=== PATIENT | male | born 1950 | race Asian ===

== ENCOUNTER 2019-04-21 13:06 | Inpatient (IN) | payer OTHER, MEDICAID ==
--- NOTE | 2019-04-21 13:38 | ED Physician Chart ---
ED Chief Complaint/HPI - Patient Information Date Seen:: 04/21/19 Time Seen:: 13:18 Chief Complaint:: acute tachycardia History of Present Illness:: this is a 68 yo male dialysis patient bib ems from dialysis for treatment and evaluation for an episode of severe tachycardia after dialysis was started just prior to arrival. he is diabetic and a quadraplegic. he is obtunded and unable to think or speak with a functioning trach in place. Allergies:: Allergies Allergy/AdvReac Type Severity Reaction Status Date / Time aspirin Allergy Verified 04/21/19 13:16 promethazine Allergy Verified 04/21/19 13:17 Vitals:: Vital Signs - 8 hr 04/21/19 13:17 Temp 99.5 F HR 122 RR 18 BP 148/74 O2 Sat % 100 Historian:: EMS, Medical Records Review:: Nurse's Note Reviewed ED Past Medical History - Past Medical History Obtainable: Yes Past Medical History: HTN, DM, CVA/TIA, Dyslipidemia, ESRD, Dementia, Other ( blind and quadraplegic) Family History: None Social History: Non Smoker, No Alcohol, No Drug Use, Care Facility Surgical History: PEG/GTube, other (trach) Family Medical History - Family Member Father History Unknown: Yes ED Physical Exam - Physical Examination General/Constitutional: Awake, Well-developed, well-nourished, Alert, No distress, GCS 15, Non-toxic appearing, Ambulatory Other Gen/Cons comments:: the patient is obtunded and not responsive to painful stimulus Head: Atraumatic Eyes: Lids, conjuctiva normal, PERRL, EOMI Skin: Nl inspection, No rash, No skin lesions, No ecchymosis, Well hydrated, No lymphadenopathy ENMT: External ears, nose nl, Nasal exam nl, Lips, teeth, gums nl Neck: Nontender, Full ROM w/o pain, No JVD, No nuchal rigidity, No bruit, No mass, No stridor Other Neck comments:: trach noted in place and functioning Respiratory: Nl effort/Exclusion, Clear to Auscultation, No Wheeze/Rhonchi/Rales Cardio Vascular: RRR, No murmur, gallop, rubs, NL S1 S2 GI: No tenderness/rebounding/guarding, No organomegaly, No hernia, Normal BS's, Nondistended, No mass/bruits, No McBurney tenderness Other GI comments:: functioning g-tube noted in the abdomen : No CVA tenderness Extremities: No tenderness or effusion, Full ROM, normal strength in all extremities, No edema, Normal digits & nails Other Extremities comments:: right thigh access line noted. all four extremities have significant muscle wasting. Neuro/Psych: Alert/oriented, DTR's symmetric, Normal sensory exam, Normal motor strength, Judgement/insight normal (unable to see or speak or think), Mood normal, Normal gait, No focal deficits Other Neuro/Psych comments:: quadraplegic Misc: Normal back, No paraspinal tenderness ED Labs/Radiology/EKG Results - Lab Results Results: Laboratory Results - last 24 hr 04/21/19 04/21/19 04/21/19 13:11 13:50 13:50 WBC 8.3 RBC 3.32 L Hgb 8.6 L Hct 26.8 L MCV 80.7 MCH 25.9 L MCHC Differential 32.1 RDW 17.6 Plt Count 139 L MPV 9.2 Add Manual Diff YES Neutrophils % GOLF COURSE ASSISTANT Band Neutrophils % 28 H Lymphocytes % GOLF COURSE ASSISTANT Monocytes % GOLF COURSE ASSISTANT Eosinophils % GOLF COURSE ASSISTANT Basophils % GOLF COURSE ASSISTANT Neutrophils (Manual) 49 Lymphocytes 11 L Monocytes 9 Eosinophils 1 Basophils 0 Metamyelocytes 2 H Platelet Morphology NORMAL Polychromasia 2+ PT 10.8 INR 1.04 Specimen Source Sample Site pH pCO2 pO2 HCO3 Base Excess O2 Saturation Yaron Test Vent Rate Inspired O2 Tidal Volume PEEP Pressure (ins/psv/peep) Critical Value Sodium Potassium Chloride Carbon Dioxide Anion Gap BUN Creatinine Est GFR ( Amer) Est GFR (Non-Af Amer) BUN/Creatinine Ratio Glucose Calcium Magnesium Total Bilirubin AST ALT Alkaline Phosphatase Troponin I B-Natriuretic Peptide Total Protein Albumin Globulin Albumin/Globulin Ratio TSH 1.03 04/21/19 04/21/19 04/21/19 13:50 13:50 13:50 WBC RBC Hgb Hct MCV MCH MCHC Differential RDW Plt Count MPV Add Manual Diff Neutrophils % Band Neutrophils % Lymphocytes % Monocytes % Eosinophils % Basophils % Neutrophils (Manual) Lymphocytes Monocytes Eosinophils Basophils Metamyelocytes Platelet Morphology Polychromasia PT INR Specimen Source Sample Site pH pCO2 pO2 HCO3 Base Excess O2 Saturation Yaron Test Vent Rate Inspired O2 Tidal Volume PEEP Pressure (ins/psv/peep) Critical Value Sodium 136 Potassium 2.9 L* Chloride 99 Carbon Dioxide 18.9 L Anion Gap 21.0 H BUN 47 H Creatinine 2.7 H Est GFR ( Amer) 30.4 Est GFR (Non-Af Amer) 25.1 BUN/Creatinine Ratio 17.4 Glucose 219 H Calcium 8.4 L Magnesium Total Bilirubin 0.7 AST 36 ALT 14 Alkaline Phosphatase 82 Troponin I 0.11 H* B-Natriuretic Peptide 171.0 H Total Protein 6.9 Albumin 3.3 L Globulin 3.6 Albumin/Globulin Ratio 0.9 L TSH 04/21/19 04/21/19 13:50 14:49 WBC RBC Hgb Hct MCV MCH MCHC Differential RDW Plt Count MPV Add Manual Diff Neutrophils % Band Neutrophils % Lymphocytes % Monocytes % Eosinophils % Basophils % Neutrophils (Manual) Lymphocytes Monocytes Eosinophils Basophils Metamyelocytes Platelet Morphology Polychromasia PT INR Specimen Source Arterial Sample Site Right Radial pH 7.423 pCO2 37.9 pO2 72.5 L HCO3 24.2 Base Excess -0.1 O2 Saturation 95.0 Yaron Test Positive Vent Rate 14 Inspired O2 45 Tidal Volume 450 PEEP 5 Pressure (ins/psv/peep) NA Critical Value JG Sodium Potassium Chloride Carbon Dioxide Anion Gap BUN Creatinine Est GFR ( Amer) Est GFR (Non-Af Amer) BUN/Creatinine Ratio Glucose Calcium Magnesium 1.7 L Total Bilirubin AST ALT Alkaline Phosphatase Troponin I B-Natriuretic Peptide Total Protein Albumin Globulin Albumin/Globulin Ratio TSH - Radiology Results Results: CHEST X-RAY = PATCHY FIBROSIS NOTED CT SCAN OF THE HEAD = NO NEW ACUTE DISEASE FOUND - EKG Interpretations EKG Time:: 14:12 Rate & Rhythm: RATE =115, SINUS Kinsman: RIGHT AXIS ED Assessment - Assessment General Assessment: esrd cva with quadraplegic residual unstable for transfer. Critical Care Time: 75 minutes Excludes all billable procedures: Yes This condition life threatening/high prob of deterioration: Yes ED Septic Shock - . Is Septic Shock (SBP<90, OR Lactate>4 mmol\L) present?: No - <6hrs of presentation: Vital Signs: Vital Signs - 8 hr 04/21/19 13:17 Temp 99.5 F HR 122 RR 18 BP 148/74 O2 Sat % 100 ED Reassessment (Disposition) - Reassessment Reassessment Condition:: Improved - Diagnosis Diagnosis:: hypotension ERSD ELEVATED TROPONIN CVA WITH RESIDUAL QUADRAPLEGIA RESPIRATORY FAILURE BLINDINESS - Aftercare/Follow up Instructions Notes:: Dr Mccarty from [facility] authorized to keep him here auth number is [id number]. - Patient Disposition Admitted to:: ICU Admitting Medical Physician:: Linh Casanova Condition at Disposition:: Critical
[2019-04-21 14:16] LABS: HEMATOCRIT 26.8 % (41.0-60); HEMOGLOBIN 8.6 gm/dL (12-16); MEAN CELL VOLUME 80.7 fl (80-99); MEAN CORPUSCULAR HEMOGLOBIN 25.9 pg (27.0-31.0); MEAN CORPUSCULAR HGB CONC 32.1 pg (28.0-36.0); PLATELET COUNT 139 Th/cmm (150-400); RED BLOOD COUNT 3.32 Mil/cmm (3.80-5.80); RED CELL DISTRIBUTION WIDTH 17.6 % (11.5-20.0); WHITE BLOOD COUNT 8.3 Th/cmm (4.8-10.8)
[2019-04-21 14:29] LABS: ALB/GLOB RATIO 0.9 (1.0-1.8); ALBUMIN 3.3 gm/dL (4.2-5.5); BILIRUBIN,TOTAL 0.7 mg/dL (0.3-1.0); CALCIUM SERUM 8.4 mg/dL (8.6-10.3); CARBON DIOXIDE 18.9 mEq/L (21.0-31.0); CREATININE - SERUM 2.7 mg/dL (0.7-1.3); GFR AFRICAN-AMERICAN 30.4 ml/min (>90); GFR NON AFRICAN-AMERICAN 25.1 ml/min; TOTAL PROTEIN,SERUM 6.9 gm/dL (6.0-8.3)
[2019-04-21 14:38] LABS: INR 1.04 (0.5-1.4)
[2019-04-21 15:05] LABS: PaCO2 37.9 mmHg (35.0-45.0); PaO2 72.5 mmHg (80.0-100.0); pH 7.423 (7.35-7.45)
[2019-04-21 15:06] LABS: ALLEN TEST Positive
[2019-04-21 15:18] LABS: POTASSIUM SERUM 2.9 mEq/L (3.5-5.1)
[2019-04-21 15:36] LABS: BAND NEUTROPHILE 28 % (0-10); BASOPHIL 0 % (0-3); EOSINOPHIL 1 % (0-5); LYMPHOCYTE 11 % (20-50); METAMYELOCYTE 2 % (0-0); MONOCYTE 9 % (2-10); NEUTROPHILS 49 % (40-80)
[2019-04-21 15:41] LABS: PLATELET MORPHOLOGY NORMAL (NORMAL); POLYCHROMASIA 2+
[2019-04-21] MEDS ORDERED: Sodium Chloride 0.45% 500 ML IV ONE (16:39)
[2019-04-21 18:31] LABS: ANION GAP 18.1 (7.0-16.0); BILIRUBIN,TOTAL 0.8 mg/dL (0.3-1.0); CARBON DIOXIDE 24.1 mEq/L (21.0-31.0); GFR AFRICAN-AMERICAN 21.8 ml/min (>90); POTASSIUM SERUM 3.2 mEq/L (3.5-5.1); TOTAL PROTEIN,SERUM 8.2 gm/dL (6.0-8.3)
[2019-04-21 18:51] LABS: CREATININE - SERUM 3.6 mg/dL (0.7-1.3)
[2019-04-21] MEDS ORDERED: Sodium Chloride 0.9% 500 ML IV ONE (20:30)
[2019-04-21] MEDS ORDERED: Non-Formulary Item 1 EA (Acetaminophen [Pain Reliever] 1 TAB) GT PRN (20:34)
[2019-04-21] MEDS ORDERED: GLUCAGON HCl 1 MG KIT IM PRN (20:38)
[2019-04-21] MEDS ORDERED: Dextrose 50% 50 mL Abboject IVP PRN (20:38)
[2019-04-21] MEDS ORDERED: Non-Formulary Item 1 EA (Atorvastatin Calcium [Lipitor] 1 TAB) GT SCH (21:00)
--- NOTE | 2019-04-21 21:16 | History & Physical ---
ADMIT DATE: 04/21/2019 CHIEF COMPLAINT: Hypotension. HISTORY OF PRESENT ILLNESS: The patient is a 68-year-old male with long history of stroke, chronic respiratory failure, diabetes mellitus, end-stage renal failure, on hemodialysis, presented to the Emergency Room with hypotension. The patient was evaluated by the ER physician, admitted to the hospital for more evaluation and treatment. The patient on admission did not have any line put at the Emergency Room, so we called the nurse and put the line for the patient. The patient had a bolus of 500 mL of normal saline and final cleaner consulted on the case and aircraft motor mechanic. The patient will resume his medication and G-tube feeding. The patient is spiking low-grade fever. We started him on Tylenol. Blood culture ordered. PAST MEDICAL HISTORY: Significant for hypertension, diabetes mellitus, stroke, end-stage renal failure and hyperlipidemia. PAST SURGICAL HISTORY: G-tube placement, Keshav catheter. MEDICATIONS: ASPIRIN AND PROMETHAZINE. SOCIAL HISTORY: No smoking, no alcohol, no drug. FAMILY HISTORY: Noncontributory. MEDICATIONS: Follow admission reconciliation. REVIEW OF SYSTEMS: RENAL SYSTEM: No history of chronic renal disorder. CARDIOVASCULAR SYSTEM: No coronary artery disease. ENDOCRINE SYSTEM: History of diabetes mellitus, insulin-dependent. No thyroid problem. GASTROINTESTINAL SYSTEM: No upper or lower gastrointestinal bleed. NEUROLOGICAL SYSTEM: Has history of stroke, encephalopathy. HEMATOLOGIC SYSTEM: He has chronic anemia. GENITOURINARY: He has end-stage renal failure, on hemodialysis. PHYSICAL EXAMINATION: GENERAL: He is not coherent. VITAL SIGNS: Temperature is 99.9, heart rate is 110, blood pressure 88/56. HEENT: Pupils reactive to light and accommodation. Sclerae are clear. NECK: Supple. Negative for lymphadenopathy, JVD or bruit. CHEST: Entry of air bilateral, mild diminished. HEART: S1, S2 normal. ABDOMEN: Soft, bowel sounds positive. EXTREMITIES: 1+ edema. NEUROLOGIC: Not coherent. LABORATORY DATA: White blood cell 8.3, hemoglobin 8.6, hematocrit 26.8, platelet 139. Sodium is 136, potassium 3.2, BUN 58, creatinine 3.6. Troponin is 0.11. ASSESSMENT: 1. Hypotension. 2. Chronic respiratory failure. 3. End-stage renal failure. 4. Diabetes mellitus. 5. Anemia. 6. Chronic encephalopathy. PLAN: The patient admitted to the hospital under Dr. Casanova's service. Resume his medication and diet, bolus of fluids given. Dr. Nascimento and Dr. Govea consulted on the case. Blood culture ordered. The patient is a full code. JOB# [id number]
[2019-04-21 21:30] VITALS: BP 94/55
[2019-04-21] MEDS ORDERED: Norepinephrine 4 mg/4mL Vial IV ONE (21:57)
[2019-04-21] MEDS: Sodium Chloride 0.9% 1,000 ML IV SCH (23:00)
[2019-04-21] MEDS: LEVALBUTEROL 1.25 MG/3 ML HHN SCH (23:21)
[2019-04-22] MEDS: INSULIN LISPRO SLIDING SCALE 100 UNITS/ML UNIT SUBQ SCH ×4 (01:00→18:37)
[2019-04-22 05:14] LABS: MEAN CELL VOLUME 81.6 fl (80-99); MEAN CORPUSCULAR HEMOGLOBIN 25.6 pg (27.0-31.0); MEAN CORPUSCULAR HGB CONC 31.4 pg (28.0-36.0); PLATELET COUNT 115 Th/cmm (150-400); RED BLOOD COUNT 2.92 Mil/cmm (3.80-5.80); RED CELL DISTRIBUTION WIDTH 17.1 % (11.5-20.0); WHITE BLOOD COUNT 6.5 Th/cmm (4.8-10.8)
[2019-04-22 05:32] LABS: ALB/GLOB RATIO 0.9 (1.0-1.8); ALBUMIN 3.6 gm/dL (4.2-5.5); ANION GAP 16.4 (7.0-16.0); BILIRUBIN,TOTAL 0.6 mg/dL (0.3-1.0); CALCIUM SERUM 9.4 mg/dL (8.6-10.3); CARBON DIOXIDE 22.9 mEq/L (21.0-31.0); GFR AFRICAN-AMERICAN 19.3 ml/min (>90); GFR NON AFRICAN-AMERICAN 15.9 ml/min; POTASSIUM SERUM 3.3 mEq/L (3.5-5.1); TOTAL PROTEIN,SERUM 7.7 gm/dL (6.0-8.3)
[2019-04-22 06:34] LABS: HEMATOCRIT 23.8 % (41.0-60); HEMOGLOBIN 7.5 gm/dL (12-16)
[2019-04-22] MEDS: LEVALBUTEROL 1.25 MG/3 ML HHN SCH ×2 (07:33→15:00)
[2019-04-22 07:57] LABS: BAND NEUTROPHILE 0 % (0-10); BASOPHIL 0 % (0-3); EOSINOPHIL 2 % (0-5); LYMPHOCYTE 12 % (20-50); MONOCYTE 6 % (2-10); NEUTROPHILS 80 % (40-80)
[2019-04-22 07:58] LABS: PLATELET ESTIMATE DECREASED PLATELETS (NORMAL)
[2019-04-22 08:05] LABS: A1C 6.3 % (4.8-5.6)
[2019-04-22] MEDS ORDERED: [UNRECOGNIZED DRUG - OTHER] GT SCH (09:00)
[2019-04-22] MEDS ORDERED: ZINC GT SCH (09:00)
[2019-04-22] MEDS ORDERED: ASCORBIC ACID GT SCH (09:00)
[2019-04-22] MEDS ORDERED: Insulin Glargine 100 units/ml 10ml Vial SUBQ SCH (09:00)
[2019-04-22] MEDS ORDERED: WHEY PROTEIN GT SCH (09:00)
[2019-04-22] MEDS ORDERED: ARGININE GT SCH (09:00)
[2019-04-22] MEDS ORDERED: VITAMIN E GT SCH (09:00)
[2019-04-22] MEDS ORDERED: OMEPRAZOLE GT SCH (09:00)
[2019-04-22] MEDS ORDERED: NUT TX IMPAIRED RENAL FXN SOY GT SCH (09:00)
--- NOTE | 2019-04-22 09:34 | Diagnostic Imaging Report ---
Portable chest x-ray HISTORY: Shortness of breath Heart size difficult to assess with portable technique in a poor inspiration, but appears somewhat generous. Question of bilateral hazy lower lobe infiltrates. Clinical correlation and follow-up recommended. Tracheostomy noted. IMPRESSION: 1. Question of hazy bilateral lower lobe pulmonary infiltrates. Follow-up recommended 2. Tracheostomy 3. Somewhat generous overall heart size
[2019-04-22] MEDS: Pantoprazole 40 mg/Packet GT SCH (09:36)
[2019-04-22] MEDS: Vitamin B Complex w/Vitamin C Tab GT SCH (09:36)
--- NOTE | 2019-04-22 09:40 | Diagnostic Imaging Report ---
CT scan of the brain without intravenous contrast HISTORY: Stroke, CVA Total DLP equals 683 CTDI equals 37.5 Axial sections were obtained from the base of the skull to vertex. There is enlargement of the ventricular system along with enlargement of cerebral sulci and subarachnoid cisterns reflecting generalized atrophy. Marked encephalomalacia/atrophy involves the cerebellum. Hypodensity noted in the supratentorial periventricular white matter regions without mass effect. The findings may be associated with chronic small vessel ischemic disease. No acute intracerebral hemorrhage. Again, no mass effect or shift of midline structures. No extra-axial masses or abnormal fluid collections. Severe dense atherosclerotic vascular calcination noted particularly in the region of the vertebral and basilar arteries at the base of the skull. Sclerotic change involves the mastoid air cells bilaterally. IMPRESSION: 1. No acute abnormalities 2. Severe atrophic and chronic changes 3. Supratentorial white matter changes which may be associated with chronic small vessel ischemic disease 4. Severe atherosclerotic vascular changes 5. Sclerotic mastoid air cells consistent with inflammatory sequelae
--- NOTE | 2019-04-22 12:37 | Consultation ---
Consult Note - Consult Note Service Date: 04/22/19 Referring Physician: Linh Casanova Consult Note: PHYSICIAN Consultation Note: Date of Admission: 04/21/19 Purpose of Consultation: Chief Complaint: History of Present Illness: Patient DEMETRI DIAZ was admitted to location Intensive Care Unit with HYPOTENSION. Past Medical History: ESRD2/2 DM, HTN DM HTN BLINDNESS CHRONIC VENT DEPENDENT RESP FAILURE G TUBE STATUS R FEMORAL DIALYSIS CATHETER STATUS Allergies Allergy/AdvReac Type Severity Reaction Status Date / Time aspirin Allergy Verified 04/21/19 14:59 promethazine Allergy Verified 04/21/19 14:59 Vital Signs Temp 99.1 F 04/22/19 08:00 Pulse 95 04/22/19 11:03 Resp 24 04/22/19 10:00 BP 121/54 04/22/19 10:00 Pulse Ox 100 04/22/19 11:03 Intake & Output 04/21/19 04/22/19 04/22/19 18:59 06:59 18:59 Intake Total 500 1220 Balance 500 1220 Weight (lbs) 95.254 kg 75.478 kg Intake: Intake, IV Amount 500 Sodium Chloride 0.9% 500 500 ml @ Wide Open IV .Q0M ONE Rx#:[id number] Tube Feeding 520 Other 500 200 Other: # Voids 0 # Bowel Movements 0 Stool Characteristics Soft Formed Brown Weight Source Estimated Bedscale Laboratory Results - last 24 hr 04/21/19 04/21/19 04/21/19 13:11 13:50 13:50 WBC 8.3 RBC 3.32 L Hgb 8.6 L Hct 26.8 L MCV 80.7 MCH 25.9 L MCHC Differential 32.1 RDW 17.6 Plt Count 139 L MPV 9.2 Add Manual Diff YES Neutrophils % ARABIC TRANSLATOR Band Neutrophils % 28 H Lymphocytes % ARABIC TRANSLATOR Monocytes % ARABIC TRANSLATOR Eosinophils % ARABIC TRANSLATOR Basophils % ARABIC TRANSLATOR Neutrophils (Manual) 49 Lymphocytes 11 L Monocytes 9 Eosinophils 1 Basophils 0 Metamyelocytes 2 H Platelet Estimate Platelet Morphology NORMAL Polychromasia 2+ PT 10.8 INR 1.04 PTT (Actin FS) 42.1 H Specimen Source Sample Site pH pCO2 pO2 HCO3 Base Excess O2 Saturation Yaron Test Vent Rate Inspired O2 Tidal Volume PEEP Pressure (ins/psv/peep) Critical Value Sodium Potassium Chloride Carbon Dioxide Anion Gap BUN Creatinine Est GFR ( Amer) Est GFR (Non-Af Amer) BUN/Creatinine Ratio Glucose POC Glucose Calcium Magnesium Total Bilirubin AST ALT Alkaline Phosphatase Troponin I B-Natriuretic Peptide Total Protein Albumin Globulin Albumin/Globulin Ratio TSH 1.03 04/21/19 04/21/19 04/21/19 13:50 13:50 13:50 WBC RBC Hgb Hct MCV MCH MCHC Differential RDW Plt Count MPV Add Manual Diff Neutrophils % Band Neutrophils % Lymphocytes % Monocytes % Eosinophils % Basophils % Neutrophils (Manual) Lymphocytes Monocytes Eosinophils Basophils Metamyelocytes Platelet Estimate Platelet Morphology Polychromasia PT INR PTT (Actin FS) Specimen Source Sample Site pH pCO2 pO2 HCO3 Base Excess O2 Saturation Yaron Test Vent Rate Inspired O2 Tidal Volume PEEP Pressure (ins/psv/peep) Critical Value Sodium 136 Potassium 2.9 L* Chloride 99 Carbon Dioxide 18.9 L Anion Gap 21.0 H BUN 47 H Creatinine 2.7 H Est GFR ( Amer) 30.4 Est GFR (Non-Af Amer) 25.1 BUN/Creatinine Ratio 17.4 Glucose 219 H POC Glucose Calcium 8.4 L Magnesium Total Bilirubin 0.7 AST 36 ALT 14 Alkaline Phosphatase 82 Troponin I 0.11 H* B-Natriuretic Peptide 171.0 H Total Protein 6.9 Albumin 3.3 L Globulin 3.6 Albumin/Globulin Ratio 0.9 L TSH 04/21/19 04/21/19 04/21/19 13:50 14:49 17:55 WBC RBC Hgb Hct MCV MCH MCHC Differential RDW Plt Count MPV Add Manual Diff Neutrophils % Band Neutrophils % Lymphocytes % Monocytes % Eosinophils % Basophils % Neutrophils (Manual) Lymphocytes Monocytes Eosinophils Basophils Metamyelocytes Platelet Estimate Platelet Morphology Polychromasia PT INR PTT (Actin FS) Specimen Source Arterial Sample Site Right Radial pH 7.423 pCO2 37.9 pO2 72.5 L HCO3 24.2 Base Excess -0.1 O2 Saturation 95.0 Yaron Test Positive Vent Rate 14 Inspired O2 45 Tidal Volume 450 PEEP 5 Pressure (ins/psv/peep) NA Critical Value JG Sodium 133 L Potassium 3.2 L Chloride 94 L Carbon Dioxide 24.1 Anion Gap 18.1 H BUN 58 H Creatinine 3.6 H Est GFR ( Amer) 21.8 Est GFR (Non-Af Amer) 18.0 BUN/Creatinine Ratio 16.1 Glucose 232 H POC Glucose Calcium 10.0 Magnesium 1.7 L Total Bilirubin 0.8 AST 19 ALT 21 Alkaline Phosphatase 100 Troponin I B-Natriuretic Peptide Total Protein 8.2 Albumin 4.0 L Globulin 4.2 Albumin/Globulin Ratio 1.0 [facility] 04/22/19 04/22/19 04/22/19 00:58 05:00 05:00 WBC 6.5 RBC 2.92 L Hgb 7.5 L* Hct 23.8 L MCV 81.6 MCH 25.6 L MCHC Differential 31.4 RDW 17.1 Plt Count 115 L MPV 8.3 Add Manual Diff YES Neutrophils % Band Neutrophils % 0 Lymphocytes % Monocytes % Eosinophils % Basophils % Neutrophils (Manual) 80 Lymphocytes 12 L Monocytes 6 Eosinophils 2 Basophils 0 Metamyelocytes Platelet Estimate DECREASED PLATELETS Platelet Morphology Polychromasia PT INR PTT (Actin FS) Specimen Source Sample Site pH pCO2 pO2 HCO3 Base Excess O2 Saturation Yaron Test Vent Rate Inspired O2 Tidal Volume PEEP Pressure (ins/psv/peep) Critical Value Sodium 133 L Potassium 3.3 L Chloride 97 L Carbon Dioxide 22.9 Anion Gap 16.4 H BUN 63 H Creatinine 4.0 H Est GFR ( Amer) 19.3 Est GFR (Non-Af Amer) 15.9 BUN/Creatinine Ratio 15.8 Glucose 307 H POC Glucose 234 H Calcium 9.4 Magnesium Total Bilirubin 0.6 AST 22 ALT 24 Alkaline Phosphatase 102 Troponin I B-Natriuretic Peptide Total Protein 7.7 Albumin 3.6 L Globulin 4.1 Albumin/Globulin Ratio 0.9 L [facility] 04/22/19 04/22/19 05:57 11:53 WBC RBC Hgb Hct MCV MCH MCHC Differential RDW Plt Count MPV Add Manual Diff Neutrophils % Band Neutrophils % Lymphocytes % Monocytes % Eosinophils % Basophils % Neutrophils (Manual) Lymphocytes Monocytes Eosinophils Basophils Metamyelocytes Platelet Estimate Platelet Morphology Polychromasia PT INR PTT (Actin FS) Specimen Source Sample Site pH pCO2 pO2 HCO3 Base Excess O2 Saturation Yaron Test Vent Rate Inspired O2 Tidal Volume PEEP Pressure (ins/psv/peep) Critical Value Sodium Potassium Chloride Carbon Dioxide Anion Gap BUN Creatinine Est GFR ( Amer) Est GFR (Non-Af Amer) BUN/Creatinine Ratio Glucose POC Glucose 297 H 328 H Calcium Magnesium Total Bilirubin AST ALT Alkaline Phosphatase Troponin I B-Natriuretic Peptide Total Protein Albumin Globulin Albumin/Globulin Ratio TSH Home Medication Medication Instructions Recorded Type Acetaminophen [Pain Reliever] 1 tab GT Q4HR PRN 04/21/19 History Atorvastatin Calcium [Lipitor] 1 tab GT HS 04/21/19 History Docusate Sodium [Colace] 1 cap GT BID 04/21/19 History Fish Oil [Hugoton 3] 1 tab GT DAILY 04/21/19 History Folic Acid [Folate*] 1 mg GT DAILY 04/21/19 History Folic Acid/Vit Bcomp,C 1 tab GT DAILY 04/21/19 History [Nephro-Canelo Tablet] Insulin Glargine [Lantus Insulin] 120 units SQ BID 04/21/19 History Midodrine [Proamatine] 1 tab GT MWF 04/21/19 History Nut.tx.impaired Renal Fxn,Soy 880 ml GT DAILY 04/21/19 History [Novasource Renal 2 Clay] Omeprazole 1 tab GT BID 04/21/19 History Whey Protein/Arginine/C/E/Zinc 17 gm GT BID 04/21/19 History [Arginaid Extra Liquid] Current Medications Generic Name Dose Route Start Last Admin Trade Name Freq PRN Reason Stop Dose Admin Acetaminophen 650 mg 04/21/19 20:40 Tylenol 650mg Supp RC 06/20/19 20:39 Q4H PRN Fever > 101 Acetaminophen 650 mg 04/22/19 07:21 04/22/19 12:18 Tylenol 650mg/20.3ml Suspension GT 06/21/19 07:20 650 mg Q4HR PRN Administration Pain (Mild) Atorvastatin Calcium 40 mg 04/22/19 21:00 Lipitor GT 06/21/19 20:59 HS REY Chlorhexidine Gluconate 15 ml 04/22/19 20:00 Peridex MM 06/21/19 19:59 0800,2000 REY Dextrose 50 ml 04/21/19 20:38 D50w IVP 06/20/19 20:37 PRN PRN Blood Glucose less than 70 Dextrose 18.75 gm 04/21/19 20:38 Glutose 40% PO 06/20/19 20:37 PRN PRN Blood Glucose less than 70 Docusate Sodium 100 mg 04/22/19 09:00 04/22/19 09:36 Colace PO 06/21/19 08:59 100 mg BID REY Administration Folic Acid 1 mg 04/22/19 09:00 04/22/19 09:36 Folate GT 06/21/19 08:59 1 mg DAILY REY Administration Glucagon 1 mg 04/21/19 20:38 Glucagen IM 06/20/19 20:37 PRN PRN Blood Glucose less than 70 Norepinephrine Bitartrate 4 mg 254 mls @ 0 mls/hr 04/21/19 21:48 04/21/19 22: 20 / Dextrose IV 06/20/19 21:47 4 mcg/min TITR PRN 15.24 mls/hr BP MAINTENANCE (PER PROTOCOL) Administration Protocol Titrate Sodium Chloride 1,000 mls @ 50 mls/hr 04/21/19 21:49 04/21/19 23:00 Nacl 0.9% IV 06/20/19 21:48 50 mls/hr .Q20H REY Administration Insulin Glargine 120 units 04/22/19 09:00 Lantus Insulin SUBQ 06/21/19 08:59 BID REY Insulin Human Lispro 0 units 04/22/19 00:00 04/22/19 12:18 Humalog Insulin Sliding Scale SUBQ 06/21/19 00:00 9 units Q6HR REY Administration Protocol Levalbuterol HCl 1.25 mg 04/21/19 23:00 04/22/19 07:33 Xopenex HHN 06/20/19 22:59 Not Given Q8HRT REY Midodrine 10 mg 04/23/19 09:00 Proamatine GT 06/22/19 08:59 MWF REY Pantoprazole Sodium 40 mg 04/22/19 09:00 04/22/19 09:36 Protonix GT 06/21/19 08:59 40 mg DAILY REY Administration Vitamin B Complex/Vit C/Folic Acid 1 tab 04/22/19 09:00 04/22/19 09:36 Vitamin B Complex W/Vitamin C GT 06/21/19 08:59 1 tab DAILY REY Administration Review of Systems: A 12 point ROS was reviewed with the pertinent positive and negatives noted in the HPI. Social History Smoking Status Never smoker Drug Use No Alcohol Use No Family Medical History Family Medical History Start: 04/21/19 18: 21 Freq: ONCE Status: Active Protocol: Document 04/21/19 18:21 [email or web address] (Rec: 04/21/19 23:32 [id number]) Family Medical History Father History Unknown Yes Physical Exam: General: NON-VERBAL, MECHANICALLY VENTILATED VIA TRACH HEENT: +TRACHESTOMY Cardio: S1 S2 Respiratory: COARSE BS Abdominal: + GTUBE Extremities: NO EDEMA, +RT FEMORAL CATHETER Assessment: ESRD 2/2 DM AND HTN HTN DM ANEMIA OF ESRD HYPOTENSIVE SHOCK CHRONIC VENT DEPENDENT RESP FAILURE Plan: DIALYSIS TODAY EPOGEN MIRZA RN THANK YOU, WILL FOLLOW Signed, Blossom Schmid M.D. 229
[2019-04-22] MEDS: Sodium Chloride 0.9% 1,000 ML IV SCH (18:36)
[2019-04-22] MEDS ORDERED: cefTRIAXone 1 GM in Sodium Chloride 0.9% 50 ML IV SCH (18:45)
[2019-04-22] MEDS: Albuterol Nebulizer 2.5mg/3mL HHN SCH (19:11)
--- NOTE | 2019-04-22 21:45 | Internal Medicine Prog Note ---
Internal Medicine Subjective - Subjective Patient seen and examined:: without staff Patient is:: asleep, non-verbal, in bed Per staff patient has:: no adverse event Internal Medicine Objective - Results Result Diagrams: 04/22/19 05:00 04/22/19 05:00 Recent Labs: Laboratory Last Values WBC 6.5 Th/cmm (4.8-10.8) 04/22/19 05:00 RBC 2.92 Mil/cmm (3.80-5.80) L 04/22/19 05:00 Hgb 7.5 gm/dL (12-16) L* 04/22/19 05:00 Hct 23.8 % (41.0-60) L 04/22/19 05:00 MCV 81.6 fl (80-99) 04/22/19 05:00 MCH 25.6 pg (27.0-31.0) L 04/22/19 05:00 MCHC Differential 31.4 pg (28.0-36.0) 04/22/19 05:00 RDW 17.1 % (11.5-20.0) 04/22/19 05:00 Plt Count 115 Th/cmm (150-400) L 04/22/19 05:00 MPV 8.3 fl 04/22/19 05:00 Add Manual Diff YES 04/22/19 05:00 Neutrophils % [employer]AT[employer] TYPE[employer] INSPECTOR 04/21/19 13:50 Band Neutrophils % 0 % (0-10) 04/22/19 05:00 Lymphocytes % [employer] INSPECTOR 04/21/19 13:50 Monocytes % [employer]IC [employer] INSPECTOR 04/21/19 13:50 Eosinophils % [employer]IC [employer]WR[employer] INSPECTOR 04/21/19 13:50 Basophils % [employer]ATIC [employer]WR[employer] INSPECTOR 04/21/19 13:50 Neutrophils (Manual) 80 % (40-80) 04/22/19 05:00 Lymphocytes 12 % (20-50) L 04/22/19 05:00 Monocytes 6 % (2-10) 04/22/19 05:00 Eosinophils 2 % (0-5) 04/22/19 05:00 Basophils 0 % (0-3) 04/22/19 05:00 Metamyelocytes 2 % (0-0) H 04/21/19 13:50 Platelet Estimate DECREASED PLATELETS (NORMAL) 04/22/19 05:00 Platelet Morphology NORMAL (NORMAL) 04/21/19 13:50 Polychromasia 2+ 04/21/19 13:50 PT 10.8 SECONDS (9.5-11.5) 04/21/19 13:11 INR 1.04 (0.5-1.4) 04/21/19 13:11 PTT (Actin FS) 42.1 SECONDS (26.0-38.0) H 04/21/19 13:11 Specimen Source Arterial 04/21/19 14:49 Sample Site Right Radial 04/21/19 14:49 pH 7.423 (7.35-7.45) 04/21/19 14:49 pCO2 37.9 mmHg (35.0-45.0) 04/21/19 14:49 pO2 72.5 mmHg (80.0-100.0) L 04/21/19 14:49 HCO3 24.2 mEq/L (20.0-26.0) 04/21/19 14:49 Base Excess -0.1 mEq/L (-3.0-3.0) 04/21/19 14:49 O2 Saturation 95.0 % (92.0-100.0) 04/21/19 14:49 Yaron Test Positive 04/21/19 14:49 Vent Rate 14 04/21/19 14:49 Inspired O2 45 04/21/19 14:49 Tidal Volume 450 04/21/19 14:49 PEEP 5 04/21/19 14:49 Pressure (ins/psv/peep) NA 04/21/19 14:49 Critical Value JG 04/21/19 14:49 Sodium 133 mEq/L (136-145) L 04/22/19 05:00 Potassium 3.3 mEq/L (3.5-5.1) L 04/22/19 05:00 Chloride 97 mEq/L (98-107) L 04/22/19 05:00 Carbon Dioxide 22.9 mEq/L (21.0-31.0) 04/22/19 05:00 Anion Gap 16.4 (7.0-16.0) H 04/22/19 05:00 BUN 63 mg/dL (7-25) H 04/22/19 05:00 Creatinine 4.0 mg/dL (0.7-1.3) H 04/22/19 05:00 Est GFR ( Amer) 19.3 ml/min (>90) 04/22/19 05:00 Est GFR (Non-Af Amer) 15.9 ml/min 04/22/19 05:00 BUN/Creatinine Ratio 15.8 04/22/19 05:00 Glucose 307 mg/dL (70-105) H 04/22/19 05:00 POC Glucose 270 MG/DL (70 - 105) H 04/22/19 17:51 Calcium 9.4 mg/dL (8.6-10.3) 04/22/19 05:00 Magnesium 1.7 mg/dL (1.9-2.7) L 04/21/19 13:50 Total Bilirubin 0.6 mg/dL (0.3-1.0) 04/22/19 05:00 AST 22 U/L (13-39) 04/22/19 05:00 ALT 24 U/L (7-52) 04/22/19 05:00 Alkaline Phosphatase 102 U/L (34-104) 04/22/19 05:00 Troponin I 0.11 ng/mL (0.01-0.05) H* 04/21/19 13:50 B-Natriuretic Peptide 171.0 pg/mL (5.0-100.0) H 04/21/19 13:50 Total Protein 7.7 gm/dL (6.0-8.3) 04/22/19 05:00 Albumin 3.6 gm/dL (4.2-5.5) L 04/22/19 05:00 Globulin 4.1 gm/dL 04/22/19 05:00 Albumin/Globulin Ratio 0.9 (1.0-1.8) L 04/22/19 05:00 TSH 1.03 uIU/ml (0.34-5.60) 04/21/19 13:50 - Physical Exam Vitals and I&O: Vital Signs Temp 98.6 F 04/22/19 17:00 Pulse 98 04/22/19 19:20 Resp 18 04/22/19 18:00 BP 112/61 04/22/19 18:00 Pulse Ox 100 04/22/19 20:00 Intake & Output 04/22/19 04/22/19 04/23/19 06:59 18:59 06:59 Intake Total 1220 2254.000 Output Total 2 Balance 1220 2252.000 Weight (lbs) 75.478 kg 75.387 kg Intake: Intake, IV Amount 500 1234.000 Norepinephrine 4 mg In 254 Dextrose 5% 250 ml @ Titrate IV TITR PRN Rx#: [id number] Sodium Chloride 0.9% 1, 980.000 000 ml @ 50 mls/hr IV . Q20H [facility] Rx#:[id number] Sodium Chloride 0.9% 500 500 ml @ Wide Open IV .Q0M [facility] Rx#:[id number] Oral 0 Tube Feeding 520 600 Other 200 420 Output: Other 2 Other: # Voids 0 0 # Bowel Movements 0 2 Stool Characteristics Soft Formed Brown Weight Source Bedscale Bedscale Active Medications: Current Medications Acetaminophen (Tylenol 650mg Supp) 650 mg RC Q4H PRN PRN Reason: Fever > 101 Stop: 06/20/19 20:39 Acetaminophen (Tylenol 650mg/20.3ml Suspension) 650 mg GT Q4HR PRN PRN Reason: Pain (Mild) Stop: 06/21/19 07:20 Last Admin: 04/22/19 12:18 Dose: 650 mg Albuterol Sulfate (Albuterol 2.5mg/3ml Neb Ud) 2.5 mg HHN Q8H [facility] Stop: 06/21/19 18:59 Last Admin: 04/22/19 19:11 Dose: 2.5 mg Atorvastatin Calcium (Lipitor) 40 mg GT HS [facility] Stop: 06/21/19 20:59 Chlorhexidine Gluconate (Peridex) 15 ml MM 0800,2000 [facility] Stop: 06/21/19 19:59 Dextrose (D50w) 50 ml IVP PRN PRN PRN Reason: Blood Glucose less than 70 Stop: 06/20/19 20:37 Dextrose (Glutose 40%) 18.75 gm PO PRN PRN PRN Reason: Blood Glucose less than 70 Stop: 06/20/19 20:37 Docusate Sodium (Colace) 100 mg PO BID [facility] Stop: 06/21/19 08:59 Last Admin: 04/22/19 17:03 Dose: 100 mg Epoetin Bj (Epogen) 10,000 units SUBQ MoWeFr [facility] Stop: 06/22/19 12:38 Folic Acid (Folate) 1 mg GT DAILY [facility] Stop: 06/21/19 08:59 Last Admin: 04/22/19 09:36 Dose: 1 mg Glucagon (Glucagen) 1 mg IM PRN PRN PRN Reason: Blood Glucose less than 70 Stop: 06/20/19 20:37 Heparin Sodium (Porcine) (Heparin) 5,000 units HD UD [facility] Stop: 04/24/19 00:00 Norepinephrine Bitartrate 4 mg (/ Dextrose) 254 mls @ 0 mls/hr IV TITR PRN; Protocol PRN Reason: BP MAINTENANCE (PER PROTOCOL) Stop: 06/20/19 21:47 Last Admin: 04/22/19 18:36 Dose: 2 mcg/min, 7.62 mls/hr Sodium Chloride (Nacl 0.9%) 1,000 mls @ 50 mls/hr IV .Q20H [facility] Stop: 06/20/19 21:48 Last Admin: 04/22/19 18:36 Dose: 50 mls/hr Albumin Human (Albuminar 25%) 25 gm in 100 mls @ 50 mls/hr IV PRN PRN PRN Reason: BP Support During HD Stop: 04/23/19 23:59 Ceftriaxone Sodium 1 gm/ (Sodium Chloride) 50 mls @ 100 mls/hr IV Q24HR [facility] Stop: 06/21/19 20:59 Insulin Glargine (Lantus Insulin) 120 units SUBQ BID [facility] Stop: 06/21/19 08:59 Insulin Human Lispro (Humalog Insulin Sliding Scale) 0 units SUBQ Q6HR [facility]; Protocol Stop: 06/21/19 00:00 Last Admin: 04/22/19 18:37 Dose: 7 units Midodrine (Proamatine) 10 mg GT MWF [facility] Stop: 06/22/19 08:59 Pantoprazole Sodium (Protonix) 40 mg GT DAILY [facility] Stop: 06/21/19 08:59 Last Admin: 04/22/19 09:36 Dose: 40 mg Vitamin B Complex/Vit C/Folic Acid (Vitamin B Complex W/Vitamin C) 1 tab GT DAILY [facility] Stop: 06/21/19 08:59 Last Admin: 04/22/19 09:36 Dose: 1 tab General: demented HEENT: NC/AT, PERRLA, EOMI, anicteric sclerae, throat clear Neck: Supple, No JVD, No thyromegaly, +2 carotid pulse wo bruit, No LAD Lungs: CTAB Cardiovascular: RRR, Normal S1, Normal S2, without murmur Abdomen: soft, non-tender, non-distended Extremities: clear Neurological: no change Internal Medicine Assmt/Plan - Assessment Assessment: 1.HYPOTENSION. 2.RESPIRATORY FAILURE. 3.ESRF. 4.ANEMIA. - Plan Plan: CONTINUE ON CURRENT MEDICATION AND DIET.
[2019-04-22] MEDS: Chlorhexidine Gluconate 0.12% 15mL Mouthwash MM SCH (21:52)
[2019-04-22] MEDS: cefTRIAXone 1 GM in Sodium Chloride 0.9% 50 ML IV SCH (21:52)
[2019-04-23] MEDS ORDERED: Albumin 25% 25gm/100mL 25 GM/100 ML BTL IV PRN
[2019-04-23] MEDS: INSULIN LISPRO SLIDING SCALE 100 UNITS/ML UNIT SUBQ SCH ×4 (00:19→17:52)
[2019-04-23] MEDS: Heparin Sod 5,000Units/ML 5,000 UNITS/ML VIAL HD SCH ×2 (00:37→09:15)
[2019-04-23] MEDS: Albuterol Nebulizer 2.5mg/3mL HHN SCH ×3 (03:06→18:43)
--- NOTE | 2019-04-23 08:06 | Diagnostic Imaging Report ---
Exam: Portable chest x-ray HISTORY: Shortness of breath COMPARISON: 04/21/2019 Findings: Portable exam of chest reviewed at 7:22. The study demonstrates increase in right basal infiltrate and effusion compared to prior study 04/21/2019. Mediastinal structures midline bony thorax intact. Tracheostomy tube midline. Right-sided PICC line terminates in right axillary vein. IMPRESSION: Increase in right basilar infiltrate. Follow-up exam is recommended.
[2019-04-23 08:15] LABS: EOSINOPHILE ABSOLUTE 0.1 Th/cmm (0.1-0.4); LYMPHOCYTE ABSOLUTE 0.6 Th/cmm (1.5-3.0); MONOCYTE ABSOLUTE 0.4 Th/cmm (0.3-1.0)
[2019-04-23 08:19] LABS: % BASOPHILS 0.3 % (0.0-2.0); % EOSINOPHILS 3.1 % (0.0-5.0); % LYMPHOCYTES 13.5 % (20.0-50.0); % MONOCYTES 9.5 % (2.0-10.0); % NEUTROPHILS 73.6 % (40.0-80.0); MEAN CELL VOLUME 80.7 fl (80-99); MEAN CORPUSCULAR HEMOGLOBIN 25.4 pg (27.0-31.0); MEAN CORPUSCULAR HGB CONC 31.5 pg (28.0-36.0); NEUTROPHILE ABSOLUTE 3.2 Th/cmm (1.8-8.0); PLATELET COUNT 111 Th/cmm (150-400); RED BLOOD COUNT 2.61 Mil/cmm (3.80-5.80); RED CELL DISTRIBUTION WIDTH 16.9 % (11.5-20.0); WHITE BLOOD COUNT 4.3 Th/cmm (4.8-10.8)
[2019-04-23 08:25] LABS: ALB/GLOB RATIO 0.8 (1.0-1.8); ALBUMIN 3.5 gm/dL (4.2-5.5); BILIRUBIN,TOTAL 0.5 mg/dL (0.3-1.0); CALCIUM SERUM 9.5 mg/dL (8.6-10.3); CARBON DIOXIDE 24.2 mEq/L (21.0-31.0); CREATININE - SERUM 3.2 mg/dL (0.7-1.3); GFR NON AFRICAN-AMERICAN 20.6 ml/min; POTASSIUM SERUM 3.2 mEq/L (3.5-5.1); TOTAL PROTEIN,SERUM 7.7 gm/dL (6.0-8.3)
[2019-04-23 08:33] LABS: HEMOGLOBIN 6.6 gm/dL (12-16)
[2019-04-23] MEDS ORDERED: Potassium Chloride Elixir 20 mEq /15 mL UDC GT ONE (08:39)
--- NOTE | 2019-04-23 09:06 | General Progress Note ---
Subjective - Review of Systems Service Date: 04/23/19 Subjective: For PRBC transfusion today, next HD tomorrow Objective - Results Result Diagrams: 04/23/19 07:45 04/23/19 07:45 Recent Labs: Laboratory Last Values WBC 4.3 Th/cmm (4.8-10.8) L 04/23/19 07:45 RBC 2.61 Mil/cmm (3.80-5.80) L 04/23/19 07:45 Hgb 6.6 gm/dL (12-16) L* 04/23/19 07:45 Hct 21.0 % (41.0-60) L 04/23/19 07:45 MCV 80.7 fl (80-99) 04/23/19 07:45 MCH 25.4 pg (27.0-31.0) L 04/23/19 07:45 MCHC Differential 31.5 pg (28.0-36.0) 04/23/19 07:45 RDW 16.9 % (11.5-20.0) 04/23/19 07:45 Plt Count 111 Th/cmm (150-400) L 04/23/19 07:45 MPV 8.6 fl 04/23/19 07:45 Add Manual Diff YES 04/22/19 05:00 Neutrophils % 73.6 % (40.0-80.0) 04/23/19 07:45 Band Neutrophils % 0 % (0-10) 04/22/19 05:00 Lymphocytes % 13.5 % (20.0-50.0) L 04/23/19 07:45 Monocytes % 9.5 % (2.0-10.0) 04/23/19 07:45 Eosinophils % 3.1 % (0.0-5.0) 04/23/19 07:45 Basophils % 0.3 % (0.0-2.0) 04/23/19 07:45 Neutrophils (Manual) 80 % (40-80) 04/22/19 05:00 Lymphocytes 12 % (20-50) L 04/22/19 05:00 Monocytes 6 % (2-10) 04/22/19 05:00 Eosinophils 2 % (0-5) 04/22/19 05:00 Basophils 0 % (0-3) 04/22/19 05:00 Metamyelocytes 2 % (0-0) H 04/21/19 13:50 Platelet Estimate DECREASED PLATELETS (NORMAL) 04/22/19 05:00 Platelet Morphology NORMAL (NORMAL) 04/21/19 13:50 Polychromasia 2+ 04/21/19 13:50 PT 10.8 SECONDS (9.5-11.5) 04/21/19 13:11 INR 1.04 (0.5-1.4) 04/21/19 13:11 PTT (Actin FS) 42.1 SECONDS (26.0-38.0) H 04/21/19 13:11 Specimen Source Arterial 04/21/19 14:49 Sample Site Right Radial 04/21/19 14:49 pH 7.423 (7.35-7.45) 04/21/19 14:49 pCO2 37.9 mmHg (35.0-45.0) 04/21/19 14:49 pO2 72.5 mmHg (80.0-100.0) L 04/21/19 14:49 HCO3 24.2 mEq/L (20.0-26.0) 04/21/19 14:49 Base Excess -0.1 mEq/L (-3.0-3.0) 04/21/19 14:49 O2 Saturation 95.0 % (92.0-100.0) 04/21/19 14:49 Yaron Test Positive 04/21/19 14:49 Vent Rate 14 04/21/19 14:49 Inspired O2 45 04/21/19 14:49 Tidal Volume 450 04/21/19 14:49 PEEP 5 04/21/19 14:49 Pressure (ins/psv/peep) NA 04/21/19 14:49 Critical Value JG 04/21/19 14:49 Sodium 132 mEq/L (136-145) L 04/23/19 07:45 Potassium 3.2 mEq/L (3.5-5.1) L 04/23/19 07:45 Chloride 93 mEq/L (98-107) L 04/23/19 07:45 Carbon Dioxide 24.2 mEq/L (21.0-31.0) 04/23/19 07:45 Anion Gap 18.0 (7.0-16.0) H 04/23/19 07:45 BUN 44 mg/dL (7-25) H 04/23/19 07:45 Creatinine 3.2 mg/dL (0.7-1.3) H 04/23/19 07:45 Est GFR ( Amer) 25.0 ml/min (>90) 04/23/19 07:45 Est GFR (Non-Af Amer) 20.6 ml/min 04/23/19 07:45 BUN/Creatinine Ratio 13.8 04/23/19 07:45 Glucose 335 mg/dL (70-105) H 04/23/19 07:45 POC Glucose 339 MG/DL (70 - 105) H 04/23/19 05:09 Calcium 9.5 mg/dL (8.6-10.3) 04/23/19 07:45 Magnesium 1.7 mg/dL (1.9-2.7) L 04/21/19 13:50 Total Bilirubin 0.5 mg/dL (0.3-1.0) 04/23/19 07:45 AST 23 U/L (13-39) 04/23/19 07:45 ALT 29 U/L (7-52) 04/23/19 07:45 Alkaline Phosphatase 112 U/L (34-104) H 04/23/19 07:45 Troponin I 0.11 ng/mL (0.01-0.05) H* 04/21/19 13:50 B-Natriuretic Peptide 171.0 pg/mL (5.0-100.0) H 04/21/19 13:50 Total Protein 7.7 gm/dL (6.0-8.3) 04/23/19 07:45 Albumin 3.5 gm/dL (4.2-5.5) L 04/23/19 07:45 Globulin 4.2 gm/dL 04/23/19 07:45 Albumin/Globulin Ratio 0.8 (1.0-1.8) L 04/23/19 07:45 TSH 1.03 uIU/ml (0.34-5.60) 04/21/19 13:50 - Physical Exam Vitals and I&O: Vital Signs Temp 98.7 F 04/23/19 05:00 Pulse 96 04/23/19 08:55 Resp 17 04/23/19 06:00 BP 127/68 04/23/19 06:00 Pulse Ox 98 04/23/19 08:55 Intake & Output 04/22/19 04/23/19 04/23/19 18:59 06:59 18:59 Intake Total 2254.000 32.131 880 Output Total 2 Balance 2252.000 32.131 880 Weight (lbs) 75.387 kg 72.802 kg Intake: Intake, IV Amount 1234.000 32.131 Norepinephrine 4 mg In 254 32.131 Dextrose 5% 250 ml @ Titrate IV TITR PRN Rx#: [id number] Sodium Chloride 0.9% 1, 980.000 000 ml @ 50 mls/hr IV . Q20H [facility] Rx#:[id number] Oral 0 0 Tube Feeding 600 580 Other 420 300 Output: Other 2 Other: # Voids 0 0 # Bowel Movements 2 1 Stool Characteristics Soft Formed Brown Weight Source Bedscale Estimated Active Medications: Current Medications Acetaminophen (Tylenol 650mg Supp) 650 mg RC Q4H PRN PRN Reason: Fever > 101 Stop: 06/20/19 20:39 Acetaminophen (Tylenol 650mg/20.3ml Suspension) 650 mg GT Q4HR PRN PRN Reason: Pain (Mild) Stop: 06/21/19 07:20 Last Admin: 04/22/19 12:18 Dose: 650 mg Albuterol Sulfate (Albuterol 2.5mg/3ml Neb Ud) 2.5 mg HHN Q8H [facility] Stop: 06/21/19 18:59 Last Admin: 04/23/19 03:06 Dose: 2.5 mg Atorvastatin Calcium (Lipitor) 40 mg GT HS [facility] Stop: 06/21/19 20:59 Last Admin: 04/22/19 21:52 Dose: 40 mg Chlorhexidine Gluconate (Peridex) 15 ml MM 0800,1999 [facility] Stop: 06/21/19 19:59 Last Admin: 04/22/19 21:52 Dose: 15 ml Dextrose (D50w) 50 ml IVP PRN PRN PRN Reason: Blood Glucose less than 70 Stop: 06/20/19 20:37 Dextrose (Glutose 40%) 18.75 gm PO PRN PRN PRN Reason: Blood Glucose less than 70 Stop: 06/20/19 20:37 Docusate Sodium (Colace) 100 mg PO BID [facility] Stop: 06/21/19 08:59 Last Admin: 04/22/19 17:03 Dose: 100 mg Epoetin Bj (Epogen) 10,000 units SUBQ MoWeFr [facility] Stop: 06/22/19 12:38 Folic Acid (Folate) 1 mg GT DAILY [facility] Stop: 06/21/19 08:59 Last Admin: 04/22/19 09:36 Dose: 1 mg Glucagon (Glucagen) 1 mg IM PRN PRN PRN Reason: Blood Glucose less than 70 Stop: 06/20/19 20:37 Heparin Sodium (Porcine) (Heparin) 5,000 units HD UD [facility] Stop: 04/24/19 00:00 Last Admin: 04/23/19 00:37 Dose: Not Given Norepinephrine Bitartrate 4 mg (/ Dextrose) 254 mls @ 0 mls/hr IV TITR PRN; Protocol PRN Reason: BP MAINTENANCE (PER PROTOCOL) Stop: 06/20/19 21:47 Last Titration: 04/22/19 22:49 Dose: 0 mcg/min, 0 mls/hr Sodium Chloride (Nacl 0.9%) 1,000 mls @ 50 mls/hr IV .Q20H [facility] Stop: 06/20/19 21:48 Last Admin: 04/22/19 18:36 Dose: 50 mls/hr Albumin Human (Albuminar 25%) 25 gm in 100 mls @ 50 mls/hr IV PRN PRN PRN Reason: BP Support During HD Stop: 04/23/19 23:59 Ceftriaxone Sodium 1 gm/ (Sodium Chloride) 50 mls @ 100 mls/hr IV Q24HR [facility] Stop: 06/21/19 20:59 Last Admin: 04/22/19 21:52 Dose: 100 mls/hr Insulin Glargine (Lantus Insulin) 120 units SUBQ BID [facility] Stop: 06/21/19 08:59 Insulin Human Lispro (Humalog Insulin Sliding Scale) 0 units SUBQ Q6HR [facility]; Protocol Stop: 06/21/19 00:00 Last Admin: 04/23/19 06:44 Dose: 9 units Midodrine (Proamatine) 10 mg GT MWF [facility] Stop: 06/22/19 08:59 Pantoprazole Sodium (Protonix) 40 mg GT DAILY [facility] Stop: 06/21/19 08:59 Last Admin: 04/22/19 09:36 Dose: 40 mg Vitamin B Complex/Vit C/Folic Acid (Vitamin B Complex W/Vitamin C) 1 tab GT DAILY [facility] Stop: 06/21/19 08:59 Last Admin: 04/22/19 09:36 Dose: 1 tab General: Alert HEENT: Atraumatic Neck: Supple Lungs: Other (coarse bilaterally) Assessment/Plan - Assessment Assessment: ESRD Chronic VDRF s/p tracheostomy HTN Anemia 2 ESRD Hypotension DM2 - Plan Plan: HD tomorrow w/ PRBC transfusion BP controlled H&H below range, see above chronic vent status stable
[2019-04-23] MEDS: Pantoprazole 40 mg/Packet GT SCH (09:14)
[2019-04-23] MEDS: Vitamin B Complex w/Vitamin C Tab GT SCH (09:14)
[2019-04-23] MEDS: Chlorhexidine Gluconate 0.12% 15mL Mouthwash MM SCH ×2 (09:15→20:47)
[2019-04-23] MEDS ORDERED: Epoetin Alfa 20000 Units/mL Vial SUBQ SCH (12:39)
--- NOTE | 2019-04-23 16:02 | Consultation ---
DATE OF CONSULTATION: 04/22/2019 REFERRING PHYSICIAN: Dr. Casanova. Thank you very much for this consultation. HISTORY OF PRESENT ILLNESS: This is a 68-year-old male who has history of chronic respiratory failure, ventilator dependent; end-stage renal disease, on dialysis, who was admitted here yesterday because of hypotension during dialysis. The patient was started on Levophed, has improved and on 2 mcg of Levophed now. Had low-grade fever earlier today. No other history is available at this time. PAST MEDICAL HISTORY: The patient has history of hypertension and CVA. REVIEW OF SYSTEMS: Unable to obtain because of the patient's condition. PHYSICAL EXAMINATION: GENERAL: The patient is arousable, weak, not in acute distress. VITAL SIGNS: T-max 100, temperature 98.6, pulse 92, respirations 18, blood pressure 112/61, saturation 98%. HEENT: Atraumatic, normocephalic. Pupils equal and reactive to light and accommodation. Ears, nose, and throat normal. CHEST: There are good breath sounds. No wheezing or crackles. HEART: Regular rate and rhythm. ABDOMEN: Soft. EXTREMITIES: No edema. DIAGNOSTIC DATA: Chest x-ray showed early infiltrates in bases. LABORATORY DATA: WBC 6.5, hemoglobin 7.5, hematocrit 23.8, platelets 115. Sodium is 133, potassium 3.3, BUN is 63, creatinine 4.0. IMPRESSION: 1. Respiratory failure. 2. Possible pneumonia. 3. End-stage renal disease, on dialysis. 4. Hypotension. PLAN: 1. Start empiric antibiotics. 2. Obtain cultures and followup chest x-ray. I will follow the patient with you. Thank you very much for this consultation. JOB# [id number]
[2019-04-23] MEDS: Sodium Chloride 0.9% 1,000 ML IV SCH (16:09)
[2019-04-23 17:27] LABS: HEMATOCRIT 25.8 % (41.0-60); HEMOGLOBIN 8.4 gm/dL (12-16)
[2019-04-23] MEDS: cefTRIAXone 1 GM in Sodium Chloride 0.9% 50 ML IV SCH (20:47)
[2019-04-23] MEDS ORDERED: Insulin Glargine 100 units/ml 10ml Vial SUBQ SCH (21:00)
--- NOTE | 2019-04-23 21:03 | Internal Medicine Prog Note ---
Internal Medicine Subjective - Subjective Service Date: 04/23/19 Patient seen and examined:: with staff (HE IS BETTER.REVEIVED ONE UNIT BLOOD.) Patient is:: asleep, non-verbal, in bed Per staff patient has:: no adverse event Internal Medicine Objective - Results Result Diagrams: 04/23/19 17:00 04/23/19 07:45 Recent Labs: Laboratory Last Values WBC 4.3 Th/cmm (4.8-10.8) L 04/23/19 07:45 RBC 2.61 Mil/cmm (3.80-5.80) L 04/23/19 07:45 Hgb 8.4 gm/dL (12-16) L 04/23/19 17:00 Hct 25.8 % (41.0-60) L 04/23/19 17:00 MCV 80.7 fl (80-99) 04/23/19 07:45 MCH 25.4 pg (27.0-31.0) L 04/23/19 07:45 MCHC Differential 31.5 pg (28.0-36.0) 04/23/19 07:45 RDW 16.9 % (11.5-20.0) 04/23/19 07:45 Plt Count 111 Th/cmm (150-400) L 04/23/19 07:45 MPV 8.6 fl 04/23/19 07:45 Add Manual Diff YES 04/22/19 05:00 Neutrophils % 73.6 % (40.0-80.0) 04/23/19 07:45 Band Neutrophils % 0 % (0-10) 04/22/19 05:00 Lymphocytes % 13.5 % (20.0-50.0) L 04/23/19 07:45 Monocytes % 9.5 % (2.0-10.0) 04/23/19 07:45 Eosinophils % 3.1 % (0.0-5.0) 04/23/19 07:45 Basophils % 0.3 % (0.0-2.0) 04/23/19 07:45 Neutrophils (Manual) 80 % (40-80) 04/22/19 05:00 Lymphocytes 12 % (20-50) L 04/22/19 05:00 Monocytes 6 % (2-10) 04/22/19 05:00 Eosinophils 2 % (0-5) 04/22/19 05:00 Basophils 0 % (0-3) 04/22/19 05:00 Metamyelocytes 2 % (0-0) H 04/21/19 13:50 Platelet Estimate DECREASED PLATELETS (NORMAL) 04/22/19 05:00 Platelet Morphology NORMAL (NORMAL) 04/21/19 13:50 Polychromasia 2+ 04/21/19 13:50 PT 10.8 SECONDS (9.5-11.5) 04/21/19 13:11 INR 1.04 (0.5-1.4) 04/21/19 13:11 PTT (Actin FS) 42.1 SECONDS (26.0-38.0) H 04/21/19 13:11 Specimen Source Arterial 04/21/19 14:49 Sample Site Right Radial 04/21/19 14:49 pH 7.423 (7.35-7.45) 04/21/19 14:49 pCO2 37.9 mmHg (35.0-45.0) 04/21/19 14:49 pO2 72.5 mmHg (80.0-100.0) L 04/21/19 14:49 HCO3 24.2 mEq/L (20.0-26.0) 04/21/19 14:49 Base Excess -0.1 mEq/L (-3.0-3.0) 04/21/19 14:49 O2 Saturation 95.0 % (92.0-100.0) 04/21/19 14:49 Yaron Test Positive 04/21/19 14:49 Vent Rate 14 04/21/19 14:49 Inspired O2 45 04/21/19 14:49 Tidal Volume 450 04/21/19 14:49 PEEP 5 04/21/19 14:49 Pressure (ins/psv/peep) NA 04/21/19 14:49 Critical Value JG 04/21/19 14:49 Sodium 132 mEq/L (136-145) L 04/23/19 07:45 Potassium 3.2 mEq/L (3.5-5.1) L 04/23/19 07:45 Chloride 93 mEq/L (98-107) L 04/23/19 07:45 Carbon Dioxide 24.2 mEq/L (21.0-31.0) 04/23/19 07:45 Anion Gap 18.0 (7.0-16.0) H 04/23/19 07:45 BUN 44 mg/dL (7-25) H 04/23/19 07:45 Creatinine 3.2 mg/dL (0.7-1.3) H 04/23/19 07:45 Est GFR ( Amer) 25.0 ml/min (>90) 04/23/19 07:45 Est GFR (Non-Af Amer) 20.6 ml/min 04/23/19 07:45 BUN/Creatinine Ratio 13.8 04/23/19 07:45 Glucose 335 mg/dL (70-105) H 04/23/19 07:45 POC Glucose 287 MG/DL (70 - 105) H 04/23/19 17:35 Calcium 9.5 mg/dL (8.6-10.3) 04/23/19 07:45 Magnesium 1.7 mg/dL (1.9-2.7) L 04/21/19 13:50 Total Bilirubin 0.5 mg/dL (0.3-1.0) 04/23/19 07:45 AST 23 U/L (13-39) 04/23/19 07:45 ALT 29 U/L (7-52) 04/23/19 07:45 Alkaline Phosphatase 112 U/L (34-104) H 04/23/19 07:45 Troponin I 0.11 ng/mL (0.01-0.05) H* 04/21/19 13:50 B-Natriuretic Peptide 171.0 pg/mL (5.0-100.0) H 04/21/19 13:50 Total Protein 7.7 gm/dL (6.0-8.3) 04/23/19 07:45 Albumin 3.5 gm/dL (4.2-5.5) L 04/23/19 07:45 Globulin 4.2 gm/dL 04/23/19 07:45 Albumin/Globulin Ratio 0.8 (1.0-1.8) L 04/23/19 07:45 TSH 1.03 uIU/ml (0.34-5.60) 04/21/19 13:50 Blood Type B POSITIVE 04/23/19 09:00 Antibody Screen NEGATIVE 04/23/19 09:00 Crossmatch See Detail 04/23/19 09:00 - Physical Exam Vitals and I&O: Vital Signs Temp 98.3 F 04/23/19 18:02 Pulse 89 04/23/19 18:49 Resp 15 04/23/19 18:02 BP 138/75 04/23/19 18:02 Pulse Ox 100 04/23/19 18:49 Intake & Output 04/23/19 04/23/19 04/24/19 06:59 18:59 06:59 Intake Total 82.131 2430 Balance 82.131 2430 Weight (lbs) 74.843 kg Intake: Intake, IV Amount 82.131 1000 Norepinephrine 4 mg In 32.131 Dextrose 5% 250 ml @ Titrate IV TITR PRN Rx#: [id number] Sodium Chloride 0.9% 1, 1000 000 ml @ 50 mls/hr IV . Q20H REY Rx#:[id number] cefTRIAXone 1 gm In 50 Sodium Chloride 0.9% 50 ml @ 100 mls/hr IV Q24HR REY Rx#:[id number] Oral 0 Tube Feeding 1130 Other 300 Other: # Voids 0 # Bowel Movements 2 Stool Characteristics Soft Weight Source Bedscale Active Medications: Current Medications Acetaminophen (Tylenol 650mg Supp) 650 mg RC Q4H PRN PRN Reason: Fever > 101 Stop: 06/20/19 20:39 Acetaminophen (Tylenol 650mg/20.3ml Suspension) 650 mg GT Q4HR PRN PRN Reason: Pain (Mild) Stop: 06/21/19 07:20 Last Admin: 04/22/19 12:18 Dose: 650 mg Albuterol Sulfate (Albuterol 2.5mg/3ml Neb Ud) 2.5 mg HHN Q8H REY Stop: 06/21/19 18:59 Last Admin: 04/23/19 18:43 Dose: 2.5 mg Atorvastatin Calcium (Lipitor) 40 mg GT HS REY Stop: 06/21/19 20:59 Last Admin: 04/23/19 20:47 Dose: 40 mg [place] Balsam/Trypsin (Venelex) 1 appl TP DAILY REY Stop: 06/23/19 08:59 Chlorhexidine Gluconate (Peridex) 15 ml MM 0800,2000 REY Stop: 06/21/19 19:59 Last Admin: 04/23/19 20:47 Dose: 15 ml Dextrose (D50w) 50 ml IVP PRN PRN PRN Reason: Blood Glucose less than 70 Stop: 06/20/19 20:37 Dextrose (Glutose 40%) 18.75 gm PO PRN PRN PRN Reason: Blood Glucose less than 70 Stop: 06/20/19 20:37 Docusate Sodium (Colace) 100 mg PO BID [facility] Stop: 06/21/19 08:59 Last Admin: 04/23/19 17:05 Dose: 100 mg Epoetin Bj (Epogen) 10,000 units SUBQ TuThSa [facility] Stop: 06/23/19 14:59 Folic Acid (Folate) 1 mg GT DAILY [facility] Stop: 06/21/19 08:59 Last Admin: 04/23/19 09:14 Dose: 1 mg Glucagon (Glucagen) 1 mg IM PRN PRN PRN Reason: Blood Glucose less than 70 Stop: 06/20/19 20:37 Heparin Sodium (Porcine) (Heparin) 5,000 units HD UD [facility] Stop: 04/24/19 00:00 Last Admin: 04/23/19 09:15 Dose: Not Given Norepinephrine Bitartrate 4 mg (/ Dextrose) 254 mls @ 0 mls/hr IV TITR PRN; Protocol PRN Reason: BP MAINTENANCE (PER PROTOCOL) Stop: 06/20/19 21:47 Last Titration: 04/22/19 22:49 Dose: 0 mcg/min, 0 mls/hr Sodium Chloride (Nacl 0.9%) 1,000 mls @ 50 mls/hr IV .Q20H [facility] Stop: 06/20/19 21:48 Last Admin: 04/23/19 16:09 Dose: 50 mls/hr Albumin Human (Albuminar 25%) 25 gm in 100 mls @ 50 mls/hr IV PRN PRN PRN Reason: BP Support During HD Stop: 04/23/19 23:59 Ceftriaxone Sodium 1 gm/ (Sodium Chloride) 50 mls @ 100 mls/hr IV Q24HR [facility] Stop: 06/21/19 20:59 Last Admin: 04/23/19 20:47 Dose: 100 mls/hr Insulin Glargine (Lantus Insulin) 10 units SUBQ HS [facility] Stop: 06/22/19 20:59 Last Admin: 04/23/19 20:50 Dose: 10 units Insulin Human Lispro (Humalog Insulin Sliding Scale) 0 units SUBQ Q6HR [facility]; Protocol Stop: 06/21/19 00:00 Last Admin: 04/23/19 17:52 Dose: 7 units Midodrine (Proamatine) 10 mg GT MWF [facility] Stop: 06/22/19 08:59 Last Admin: 04/23/19 09:14 Dose: 10 mg Pantoprazole Sodium (Protonix) 40 mg GT DAILY [facility] Stop: 06/21/19 08:59 Last Admin: 04/23/19 09:14 Dose: 40 mg Vitamin B Complex/Vit C/Folic Acid (Vitamin B Complex W/Vitamin C) 1 tab GT DAILY [facility] Stop: 06/21/19 08:59 Last Admin: 04/23/19 09:14 Dose: 1 tab General: demented HEENT: NC/AT, PERRLA, EOMI, anicteric sclerae, throat clear Neck: Supple, No JVD, No thyromegaly, +2 carotid pulse wo bruit, No LAD Lungs: CTAB Cardiovascular: RRR, Normal S1, Normal S2, without murmur Abdomen: soft, non-tender, non-distended Extremities: clear Neurological: no change - Procedures Procedures: Procedures Procedure Code Date INSERT EMERGENCY AIRWAY 88915 04/21/19 INSERTION OF ENDOTRACHEAL AIRWAY INTO [place], ENDO [id number] 04/21/19 RESPIRATORY VENTILATION, 24-96 CONSECUTIVE HOURS [id number] 04/21/19 VENT MGMT INPAT INIT DAY 14437 04/21/19 VENT MGMT INPAT SUBQ DAY 31095 04/21/19 Internal Medicine Assmt/Plan - Assessment Assessment: 1.HYPOTENSION. 2.RESPIRATORY FAILURE. 3.ESRF. 4.ANEMIA. - Plan Plan: CONTINUE ON CURRENT MEDICATION AND DIET.TRANSFUSE SECOND UNIT OF BLOOD TOMORROW Nutritional Asmnt/Malnutr-PDOC - Dietary Evaluation Malnutrition Findings (Please click <Entered> for more info): Nutritional Asmnt/Malnutrition Start: 04/23/19 15: 33 Text: Status: Complete Freq: Protocol: Document 04/23/19 15:33 MBONUS (Rec: 04/23/19 15:37 [email or web address] [email or web address]) Nutritional Asmnt/Malnutrition Patient General Information Nutritional Screening High Risk Diagnosis Hypotension Pertinent Medical Hx/Surgical Hx HTN, DM, CVA,/TIA, Dyslipidemia, ESRD, Dementia, Blind & Quadraplegic Subjective Information Pt seen sleeping in bed at time of visit. Per RN (Aditi), Pt tolerate well on G-Tube to continuous Nepro tube feeding at 50ml/hr with no residual noted. Pt continuous on ventilator. Pt scheduled dialysis on 04/24. Current Diet Order/ Nutrition Support Tube feeding Nepro at 50ml/hr Pertinent Medications Lipitor, NACL 0.9%, Peridex, D50W, Glutose 40%, Colace, Floate, Glucagen, INS-SS, Protonix, Vit B complex w/Vit C Pertinent Labs 04/22 POC Glu 297, 328, 270 04/23 POC Glu 342, 339, Glucose 335, NA 132, POTASS 3.2, CL 93, BUN 44, CR 3.2, Alb 3.5 Nutritional Hx/Data Height 1.7 m Height (Calculated Centimeters) 170.2 Current Weight (lbs) 72.802 kg Weight (Calculated Kilograms) 72.8 Weight (Calculated Grams) 49659.6 [place] Body Weight 66 kg Body Mass Index (BMI) 25.1 Weight Status Overweight GI Symptoms GI Symptoms None Last BM 04/23 Difficult in: None Skin Integrity/Comment: Jabari 11, Decubitus Pressure Area and reddened on Bilateral Buttocks Estimated Nutritional Goals BEE in Kcals: Using Current wt Calories/Kcals/Kg 25-30 Kcal/kg Kcals Calculated 5906-5772 Kcal Protein: Using Current wt Protein g/k.2-1.4 g/kg Protein Calculated 87-102 g Fluid: ml 9740-1679 ml/kcal Nutritional Problem 1. Problem Problem Altered nutrition related labs result Etiology medical condition Signs/Symptoms: Lab result POC glucose 270-342 Malnutrition Related to Morbid Obesity Malnutrition related to morbid obesity No Intervention/Recommendation Comments 1. Continue with current TF regimen. It provides 2160 kcal , 97g protein, 872ml free water, meeting 100% of nutritional needs 2. Monitor TF rate, tolerance, wt, skin integrity and labs 3. F/U as high risk in 2-3 days Expected Outcomes/Goals Expected Outcomes/Goals 1. Pt to meet at least 90% of nutritional needs via nutrition support with tolerance 2. Wt stability, skin to remain intact, labs to approach WNL.
[2019-04-24] MEDS: INSULIN LISPRO SLIDING SCALE 100 UNITS/ML UNIT SUBQ SCH ×4 (00:20→17:45)
[2019-04-24] MEDS: Albuterol Nebulizer 2.5mg/3mL HHN SCH ×2 (03:31→11:49)
[2019-04-24 07:14] LABS: % EOSINOPHILS 4.6 % (0.0-5.0); % MONOCYTES 10.5 % (2.0-10.0); % NEUTROPHILS 73.9 % (40.0-80.0); EOSINOPHILE ABSOLUTE 0.2 Th/cmm (0.1-0.4); HEMATOCRIT 24.9 % (41.0-60); HEMOGLOBIN 8.4 gm/dL (12-16); LYMPHOCYTE ABSOLUTE 0.5 Th/cmm (1.5-3.0); MEAN CELL VOLUME 81.1 fl (80-99); MEAN CORPUSCULAR HEMOGLOBIN 27.2 pg (27.0-31.0); MEAN CORPUSCULAR HGB CONC 33.6 pg (28.0-36.0); MONOCYTE ABSOLUTE 0.5 Th/cmm (0.3-1.0); NEUTROPHILE ABSOLUTE 3.4 Th/cmm (1.8-8.0); PLATELET COUNT 97 Th/cmm (150-400); RED BLOOD COUNT 3.07 Mil/cmm (3.80-5.80); RED CELL DISTRIBUTION WIDTH 15.5 % (11.5-20.0); WHITE BLOOD COUNT 4.6 Th/cmm (4.8-10.8)
[2019-04-24 07:34] LABS: ALB/GLOB RATIO 0.9 (1.0-1.8); ALBUMIN 3.7 gm/dL (4.2-5.5); ANION GAP 19.3 (7.0-16.0); BILIRUBIN,TOTAL 0.4 mg/dL (0.3-1.0); CALCIUM SERUM 9.7 mg/dL (8.6-10.3); CARBON DIOXIDE 22.4 mEq/L (21.0-31.0); GFR AFRICAN-AMERICAN 18.8 ml/min (>90); GFR NON AFRICAN-AMERICAN 15.5 ml/min; POTASSIUM SERUM 3.7 mEq/L (3.5-5.1); TOTAL PROTEIN,SERUM 7.7 gm/dL (6.0-8.3)
[2019-04-24 07:51] LABS: CREATININE - SERUM 4.1 mg/dL (0.7-1.3)
[2019-04-24] MEDS ORDERED: Venelex 60gm Tube TP SCH ×2 (09:00)
[2019-04-24] MEDS: Chlorhexidine Gluconate 0.12% 15mL Mouthwash MM SCH (09:46)
[2019-04-24] MEDS: Vitamin B Complex w/Vitamin C Tab GT SCH (09:46)
[2019-04-24] MEDS: Pantoprazole 40 mg/Packet GT SCH (09:47)
[2019-04-24] MEDS ORDERED: Epoetin Alfa 20000 Units/mL Vial SUBQ SCH (15:00)
--- NOTE | 2019-04-24 16:47 | Progress Notes ---
DATE: 04/23/2019 PULMONARY PROGRESS NOTE SUBJECTIVE: The patient appears to be doing okay, in no distress. OBJECTIVE: VITAL SIGNS: Temperature is 98.3, pulse 89, respirations 15, blood pressure 110/75, saturation is 98%. CHEST: Good breath sounds. No wheezing. Decreased rhonchi. HEART: Regular rate and rhythm. ABDOMEN: Soft. EXTREMITIES: No edema. LABORATORY DATA: WBC is 4.3, hemoglobin 6.6, hematocrit 21.0. Sodium 132, potassium 3.2, BUN 44, creatinine 3.2. IMPRESSION: 1. Respiratory failure. 2. Pneumonia. 3. Anemia. 4. Weakness. 5. Chronic kidney disease, on dialysis. PLAN: 1. Continue nebulizer. 2. Antibiotics. 3. Blood transfusion. 4. Hemodialysis. Discussed with family at bedside. JOB# [id number] MTDD
--- NOTE | 2019-05-02 18:23 | Discharge Summary ---
DATE OF DISCHARGE: 04/24/2019 FINAL DIAGNOSES: 1. Aspiration pneumonia. 2. Septic shock. 3. Chronic respiratory failure. 4. Diabetes mellitus. 5. End-stage renal failure. 6. Anemia. REVIEW OF HISTORY: The patient is a 68-year-old male with long history of CVA, chronic respiratory failure, chronic encephalopathy, diabetes mellitus, end-stage renal failure, presented to the Emergency Room with hypotension, evaluated by the ER physician. Initial workup significant for aspiration pneumonia, septic shock, admitted to ICU. PHYSICAL EXAMINATION: VITAL SIGNS: Temperature 99.9, heart rate 110, blood pressure 88/56. CHEST: Diminished breathing sound. HEART: S1, S2 normal. ABDOMEN: Soft, bowel sounds positive. EXTREMITIES: 1+ edema. The patient started on IV fluid, IV antibiotic. Pulmonary was consulted on the case. COURSE OF HOSPITALIZATION: During hospitalization, the patient improved clinically on 04/23/2019. The patient was tolerating his medication well, NG tube. Temperature 98, heart rate 88, blood pressure 120/70. Chest clear to auscultation. Abdomen, Soft, bowel sounds positive. DISPOSITION: On 04/24/2019, the patient was transferred back to facility to continue on medication and diet. CONDITION ON DISCHARGE: Stable. MEDICATIONS: Follow discharge reconciliation. [facility]# [id number]
== END 2019-04-24 18:30 | DRG 871 ==
LOC: ER 13:06 → ICU 17:40
PROVIDERS: ADMIT Family Medicine; ATTEND Family Medicine
PROC: 5A1945Z Respiratory Ventilation, 24-96 Consecutive Hours (ICD-10-PCS; principal; 2019-04-21)
PROC: 30233N1 Transfusion of Nonautologous Red Blood Cells into Peripheral Vein, Percutaneous Approach (ICD-10-PCS; 2019-04-23)
PROC: 5A1D70Z Performance of Urinary Filtration, Intermittent, Less than 6 Hours Per Day (ICD-10-PCS; 2019-04-24)
DX: A41.9 Sepsis, unspecified organism (principal); J69.0 Pneumonitis due to inhalation of food and vomit; R65.21 Severe sepsis with septic shock; N18.6 End stage renal disease; G82.50 Quadriplegia, unspecified; J96.10 Chronic respiratory failure, unspecified whether with hypoxia or hypercapnia; G93.49 Other encephalopathy; Z99.11 Dependence on respirator [ventilator] status; I12.0 Hypertensive chronic kidney disease with stage 5 chronic kidney disease or end stage renal disease; I95.9 Hypotension, unspecified; D63.1 Anemia in chronic kidney disease; L89.152 Pressure ulcer of sacral region, stage 2; E11.22 Type 2 diabetes mellitus with diabetic chronic kidney disease; H54.7 Unspecified visual loss; E78.5 Hyperlipidemia, unspecified; F03.90 Unspecified dementia, unspecified severity, without behavioral disturbance, psychotic disturbance, mood disturbance, and anxiety; Z93.1 Gastrostomy status; Z93.0 Tracheostomy status; Z99.2 Dependence on renal dialysis; I69.365 Other paralytic syndrome following cerebral infarction, bilateral; Z88.6 Allergy status to analgesic agent
CPT/HCPCS: 36415-UA; 36600-90; 70450-TC; 71045-TC; 80053-TC; 82803-TC; 82948-90; 83036-90; 83735-TC; 83880-TC; 84443-TC; 84484-TC; 85007-TC; 85014-TC; 85018-TC; 85025-TC; 85610-TC; 85730-TC; 86850-TC; 86900-TC; 86901-TC; 86922-TC; 90937; 93005; 94002; 94003; 94640; A4217; J0696; J0885; J1815; J7030; J7613; P9016; X6452; Z7610